=== PATIENT | female | born 1995 | race Caucasian/White ===

== ENCOUNTER 2024-06-20 04:09 | Inpatient (IN) | payer OTHER ==
[2024-06-20] MEDS: ACETAMINOPHEN TAB 325 MG TAB PO STA (05:07)
[2024-06-20] MEDS: IBUPROFEN 600 MG TAB PO STA (05:08)
[2024-06-20] MEDS: ONDANSETRON ODT 4 MG TAB PO STA (05:09)
[2024-06-20] MEDS: BACITRACIN OINT 1 EACH PACKET TOPICAL ONE (05:56)
--- NOTE | 2024-06-20 06:14 | ED ---
Lower Extremity Injury HPI <Davi Salgado - Last Filed: 06/20/24 09:22> - General Source: patient, police Mode of arrival: wheelchair Limitations: no limitations - History of Present Illness MD Complaint: foot injury -: hour(s) Injury: Foot: Right, Left Type of Injury: other (Walking) Place: street/outdoors Severity: moderate Improves With: nothing Worsens With: weight bearing Context: other <Ney Simons - Last Filed: 06/26/24 09:35> - General Chief Complaint: Extremity Injury, Lower Stated Complaint: Leg injuries Time Seen by Provider: 06/20/24 04:27 - History of Present Illness Initial Comments: This patient is a 29-year-old woman who complains of having bilateral foot pain. The patient states that she had been doing a lot of walking today. She knows that she caused at least 1 blister on her right foot. She denies any other injuries. (Ney Simons) - Related Data Home Medications Medication Instructions Recorded Confirmed Atomoxetine HCl [Strattera] 18 mg PO DAILY 06/20/24 06/22/24 Escitalopram [Lexapro] 5 mg PO DAILY 06/20/24 06/22/24 Etanercept [Enbrel Sureclick] 50 mg SQ Q7D 06/20/24 06/22/24 Gabapentin [Neurontin] 200 mg PO BID 06/20/24 06/22/24 Levothyroxine Sodium [Synthroid] 25 mcg PO DAILY 06/20/24 06/22/24 Propranolol [Inderal] 20 mg PO BID 06/20/24 06/22/24 Spironolactone [Aldactone] 100 mg PO DAILY 06/20/24 06/22/24 sulfaSALAzine [sulfaSALAzine Dr] 1,000 mg PO BID 06/23/24 06/23/24 Previous Rx's Medication Instructions Recorded Ibuprofen [Motrin] 600 mg PO Q8HR PRN #20 tab 06/20/24 Allergies Allergy/AdvReac Type Severity Reaction Status Date / Time caffeine Allergy Anaphylaxis Verified 06/20/24 11:02 Review of Systems ROS Other: All systems not noted in ROS Statement are negative. <Davi Salgado - Last Filed: 06/20/24 09:22> ROS Other: All systems not noted in ROS Statement are negative. Constitutional: Denies: fever, chills, weakness Respiratory: Denies: cough, dyspnea Cardiovascular: Denies: chest pain, palpitations, edema Gastrointestinal: Denies: abdominal pain, nausea, vomiting, diarrhea Genitourinary: Denies: dysuria, frequency, hematuria Musculoskeletal: Denies: back pain Skin: Reports: other (Blister right foot). Denies: rash Neurological: Denies: headache, weakness, numbness <Ney Simons - Last Filed: 06/26/24 09:35> ROS Statement: Those systems with pertinent positive or pertinent negative responses have been documented in the HPI. Past Medical History Past Medical History: No Reported History History of Any Multi-Drug Resistant Organisms: None Reported Past Surgical History: No Surgical Hx Reported Past Psychological History: Anxiety, Bipolar, Depression Smoking Status: Never smoker Past Alcohol Use History: None Reported Past Drug Use History: None Reported <Ney Simons - Last Filed: 06/26/24 09:35> General Exam Limitations: no limitations General appearance: alert, in no apparent distress Head exam: Present: atraumatic, normocephalic Eye exam: Present: normal appearance. Absent: scleral icterus, conjunctival injection ENT exam: Present: normal oropharynx Neck exam: Present: normal inspection Respiratory exam: Present: normal lung sounds bilaterally. Absent: respiratory distress, wheezes, rales, rhonchi, stridor, accessory muscle use Cardiovascular Exam: Present: regular rate, normal rhythm, normal heart sounds. Absent: systolic murmur, diastolic murmur, rubs, gallop Extremities exam: Present: full ROM, normal capillary refill, other (Does have blister to the plantar aspect of the right forefoot. No evidence of infection. No erythema, warmth, drainage). Absent: pedal edema Neurological exam: Present: alert. Absent: motor sensory deficit Skin exam: Present: warm, dry, normal color, vesicles (See above). Absent: rash <Ney Simons - Last Filed: 06/26/24 09:35> Course Vital Signs 06/20/24 06/20/24 06/20/24 04:10 05:40 06:31 Temperature 97.9 F Pulse Rate 114 H 92 137 H Respiratory 20 18 16 Rate Blood Pressure 120/81 106/73 119/62 O2 Sat by Pulse 98 95 Oximetry 06/20/24 06/20/24 06/20/24 08:30 09:09 10:21 Temperature 97.9 F Pulse Rate 104 H 104 H 96 Respiratory 18 18 16 Rate Blood Pressure 102/75 113/68 111/77 O2 Sat by Pulse 97 Oximetry 06/20/24 06/20/24 06/20/24 11:04 12:57 14:48 Temperature Pulse Rate 94 93 102 H Respiratory 18 18 18 Rate Blood Pressure 105/65 120/80 123/80 O2 Sat by Pulse 93 L 99 Oximetry 06/20/24 06/20/24 06/20/24 16:25 18:10 20:04 Temperature Pulse Rate 106 H 113 H 113 H Respiratory 16 18 18 Rate Blood Pressure 111/75 115/61 102/69 O2 Sat by Pulse 95 98 95 Oximetry 06/20/24 06/21/24 06/21/24 21:08 00:00 05:00 Temperature Pulse Rate 107 H 98 100 Respiratory 16 18 18 Rate Blood Pressure 103/60 113/63 109/62 O2 Sat by Pulse 97 99 Oximetry 06/21/24 06:17 Temperature Pulse Rate 102 H Respiratory 18 Rate Blood Pressure 105/68 O2 Sat by Pulse 96 Oximetry Medical Decision Making - Lab Data Result diagrams: 06/20/24 07:08 06/20/24 07:08 <Davi Salgado - Last Filed: 06/20/24 09:22> - Lab Data Result diagrams: 06/22/24 06:04 06/22/24 06:04 - EKG Data -: EKG Interpreted by Me EKG shows normal: sinus rhythm, axis (Normal), intervals (Normal), QRS complexes ( normal), ST-T waves (Versions inferior and lateral) Rate: normal (Rate 131 bpm) <Ney Simons - Last Filed: 06/26/24 09:35> - Medical Decision Making Was patient admitted / discharged? Hospital course, mention meds given and route, prescriptions, significant lab abnormalities, going to OR and other pertinent info. @ -Dr. Wilburn signed out the patient to me at 7 AM. Patient admitted that she took a bunch of Lamictal last night and that she is suicidal. Patient is not back to her baseline so patient will be admitted as a medical admission with a psych consult. I spoke with Dr. Christensen he agreed to admit the patient Undiagnosed new problem with uncertain prognosis? @ -No Drug Therapy requiring intensive monitoring for toxicity (Heparin, Nitro, Insulin, Cardizem)? @ -No Were any procedures done? @ -No Diagnosis/symptom? @ -Intentional overdose Acute, or Chronic, or Acute on Chronic? @ -Acute Uncomplicated (without systemic symptoms) or Complicated (systemic symptoms)? @ -Complicated Side effects of treatment? @ -No Exacerbation, Progression, or Severe Exacerbation? @ -No Poses a threat to life or bodily function? How? (Chest pain, USA, RI, pneumonia, PE, COPD, DKA, ARF, appy, cholecystitis, CVA, Diverticulitis, Homicidal, Suicidal, threat to staff... and all critical care pts) @ -Yes this could lead to significant lethargy and possible rhabdomyolysi (Davi Salgado) This patient is a 29-year-old woman who initially presented with complaint that she had been walking a lot and sustained a blister to the right foot and was having bilateral foot pain. She received medication here and then on reeval prior to discharge, the patient was very somnolent. She began to have vomiting with some coffee-ground material. The patient attempted to get up from the bed and fell striking her head against the wall. There was concern that she may have ingested additional doses of her Lamictal. She had 3 prescription bottle filled May 28 that was empty. Was pt. sent in by a medical professional or institution ([facility], CERTIFIED ADAPTED PHYSICAL EDUCATOR, urgent care, hospital, or [facility]...) When possible be specific @ -[No] Did you speak to anyone other than the patient for history (EMS, parent, family, police, friend...)? What history was obtained from this source @ -[No] Did you review nursing and triage notes (agree or disagree)? Why? @ -[I reviewed and agree with nursing and triage notes] Were old charts reviewed (outside hosp., previous admission, EMS record, old EKG, old radiological studies, urgent care reports/EKG's, [facility] records)? Report findings @ -[No old charts were reviewed] Differential Diagnosis (chest pain, altered mental status, abdominal pain women, abdominal pain men, vaginal bleeding, weakness, fever, dyspnea, syncope, headache, dizziness, GI bleed, back pain, seizure, CVA, palpatations, mental health, musculoskeletal)? @ -[Differential Mental Health Depression, anxiety, bipolar, psychosis, schizophrenia, borderline personality, situational depression, adjustment disorder, behavioral disorder, brain tumor, malingering, substance abuse, encephalopathy, medication reaction, dementia, hypothyroidism, degenerative neurologic disorder, lupus.... This is not meant to be all-inclusive list EKG interpreted by me (3pts min.). @ -[As above] X-rays interpreted by me (1pt min.). @ -[None done] CT interpreted by me (1pt min.). @ -[None done] U/S interpreted by me (1pt. min.). @ -[None done] What testing was considered but not performed or refused? (CT, X-rays, U/S, labs)? Why? @ -[None] What meds were considered but not given or refused? Why? @ -[None] Did you discuss the management of the patient with other professionals (professionals i.e. , PA, CERTIFIED ADAPTED PHYSICAL EDUCATOR, lab, RT, psych nurse, social work associate, metal fitters and machinists, teacher, weapons officer naval activity, case therapist)? Give summary @ -[No] Was smoking cessation discussed for >3mins.? @ -[No] Was critical care preformed (if so, how long)? @ -[No] Were there social determinants of health that impacted care today? How? (Homelessness, low income, unemployed, alcoholism, drug addiction, transportation, low edu. Level, literacy, decrease access to med. care, retirement, rehab)? @ -[No] Was there de-escalation of care discussed even if they declined (Discuss DNR or withdrawal of care, Hospice)? DNR status @ -[No] What co-morbidities impacted this encounter? (DM, HTN, Smoking, COPD, CAD, Cancer, CVA, ARF, Chemo, Hep., AIDS, mental health diagnosis, sleep apnea, morbid obesity)? @ -[None] Was patient admitted / discharged? Hospital course, mention meds given and route, prescriptions, significant lab abnormalities, going to OR and other perti nent info. @ -[hospital course] nction? How? (Chest pain, USA, RI, pneumonia, PE, COPD, DKA, ARF, appy, cholecystitis, CVA, Diverticulitis, Homicidal, Suicidal, threat to staff... and all critical care pts) @ -[No] (Ney Simons) - Lab Data Lab Results 06/20/24 06/20/24 06/20/24 Range/Units 07:08 07:08 07:08 WBC 14.6 H (3.8-10.6) k/uL RBC 4.13 (3.80-5.40) m/uL Hgb 12.9 (11.4-16.0) gm/dL Hct 37.9 (34.0-46.0) % MCV 91.6 (80.0-100.0) fL MCH 31.3 (25.0-35.0) pg MCHC 34.2 (31.0-37.0) g/dL RDW 12.3 (11.5-15.5) % Plt Count 268 (150-450) k/uL MPV 8.9 Neutrophils % 76 % Lymphocytes % 12 % Monocytes % 8 % Eosinophils % 1 % Basophils % 0 % Neutrophils # 11.1 H (1.3-7.7) k/uL Lymphocytes # 1.8 (1.0-4.8) k/uL Monocytes # 1.2 H (0-1.0) k/uL Eosinophils # 0.1 (0-0.7) k/uL Basophils # 0.1 (0-0.2) k/uL Sodium 138 (137-145) mmol/L Potassium 3.1 L (3.5-5.1) mmol/L Chloride 104 (98-107) mmol/L Carbon Dioxide 20 L (22-30) mmol/L Anion Gap 14 mmol/L BUN 9 (7-17) mg/dL Creatinine 0.58 (0.52-1.04) mg/dL Est GFR (CKD-EPI)AfAm >90 (>60 ml/min/1.73 sqM) Est GFR (CKD-EPI)NonAf >90 (>60 ml/min/1.73 sqM) Glucose 175 H (74-99) mg/dL Lactic Ac Sepsis Rflx Plasma Lactic Acid Vance 3.8 H* (0.7-2.0) mmol/L Calcium 9.0 (8.4-10.2) mg/dL Total Bilirubin 0.8 (0.2-1.3) mg/dL AST 41 H (14-36) U/L ALT 22 (4-34) U/L Alkaline Phosphatase 84 (38-126) U/L Creatine Kinase (30-135) U/L Troponin I (0.000-0.034) ng/mL Total Protein 6.9 (6.3-8.2) g/dL Albumin 4.2 (3.5-5.0) g/dL Urine HCG, Qual (Not Detectd) Salicylates <1.0 mg/dL Urine Opiates Screen (NotDetected) Ur Oxycodone Screen (NotDetected) Urine Methadone Screen (NotDetected) Acetaminophen <10.0 ug/mL Ur Barbiturates Screen (NotDetected) Lamotrigine (2.0-15.0) ug/mL U Tricyclic Antidepress (NotDetected) Ur Phencyclidine Scrn (NotDetected) Ur Amphetamines Screen (NotDetected) U Methamphetamines Scrn (NotDetected) U Benzodiazepines Scrn (NotDetected) Urine Cocaine Screen (NotDetected) U Marijuana (THC) Screen (NotDetected) Serum Alcohol <10 mg/dL 06/20/24 06/20/24 06/20/24 Range/Units 07:08 07:08 07:08 WBC (3.8-10.6) k/uL RBC (3.80-5.40) m/uL Hgb (11.4-16.0) gm/dL Hct (34.0-46.0) % MCV (80.0-100.0) fL MCH (25.0-35.0) pg MCHC (31.0-37.0) g/dL RDW (11.5-15.5) % Plt Count (150-450) k/uL MPV Neutrophils % % Lymphocytes % % Monocytes % % Eosinophils % % Basophils % % Neutrophils # (1.3-7.7) k/uL Lymphocytes # (1.0-4.8) k/uL Monocytes # (0-1.0) k/uL Eosinophils # (0-0.7) k/uL Basophils # (0-0.2) k/uL Sodium (137-145) mmol/L Potassium (3.5-5.1) mmol/L Chloride (98-107) mmol/L Carbon Dioxide (22-30) mmol/L Anion Gap mmol/L BUN (7-17) mg/dL Creatinine (0.52-1.04) mg/dL Est GFR (CKD-EPI)AfAm (>60 ml/min/1.73 sqM) Est GFR (CKD-EPI)NonAf (>60 ml/min/1.73 sqM) Glucose (74-99) mg/dL Lactic Ac Sepsis Rflx Plasma Lactic Acid Vance (0.7-2.0) mmol/L Calcium (8.4-10.2) mg/dL Total Bilirubin (0.2-1.3) mg/dL AST (14-36) U/L ALT (4-34) U/L Alkaline Phosphatase (38-126) U/L Creatine Kinase 463 H (30-135) U/L Troponin I <0.012 (0.000-0.034) ng/mL Total Protein (6.3-8.2) g/dL Albumin (3.5-5.0) g/dL Urine HCG, Qual (Not Detectd) Salicylates mg/dL Urine Opiates Screen (NotDetected) Ur Oxycodone Screen (NotDetected) Urine Methadone Screen (NotDetected) Acetaminophen ug/mL Ur Barbiturates Screen (NotDetected) Lamotrigine 30.5 H* (2.0-15.0) ug/mL U Tricyclic Antidepress (NotDetected) Ur Phencyclidine Scrn (NotDetected) Ur Amphetamines Screen (NotDetected) U Methamphetamines Scrn (NotDetected) U Benzodiazepines Scrn (NotDetected) Urine Cocaine Screen (NotDetected) U Marijuana (THC) Screen (NotDetected) Serum Alcohol mg/dL 06/20/24 06/20/24 06/20/24 Range/Units 07:36 08:34 08:34 WBC (3.8-10.6) k/uL RBC (3.80-5.40) m/uL Hgb (11.4-16.0) gm/dL Hct (34.0-46.0) % MCV (80.0-100.0) fL MCH (25.0-35.0) pg MCHC (31.0-37.0) g/dL RDW (11.5-15.5) % Plt Count (150-450) k/uL MPV Neutrophils % % Lymphocytes % % Monocytes % % Eosinophils % % Basophils % % Neutrophils # (1.3-7.7) k/uL Lymphocytes # (1.0-4.8) k/uL Monocytes # (0-1.0) k/uL Eosinophils # (0-0.7) k/uL Basophils # (0-0.2) k/uL Sodium (137-145) mmol/L Potassium (3.5-5.1) mmol/L Chloride (98-107) mmol/L Carbon Dioxide (22-30) mmol/L Anion Gap mmol/L BUN (7-17) mg/dL Creatinine (0.52-1.04) mg/dL Est GFR (CKD-EPI)AfAm (>60 ml/min/1.73 sqM) Est GFR (CKD-EPI)NonAf (>60 ml/min/1.73 sqM) Glucose (74-99) mg/dL Lactic Ac Sepsis Rflx Y Plasma Lactic Acid Vance (0.7-2.0) mmol/L Calcium (8.4-10.2) mg/dL Total Bilirubin (0.2-1.3) mg/dL AST (14-36) U/L ALT (4-34) U/L Alkaline Phosphatase (38-126) U/L Creatine Kinase (30-135) U/L Troponin I (0.000-0.034) ng/mL Total Protein (6.3-8.2) g/dL Albumin (3.5-5.0) g/dL Urine HCG, Qual Not Detected (Not Detectd) Salicylates mg/dL Urine Opiates Screen Not Detected (NotDetected) Ur Oxycodone Screen Not Detected (NotDetected) Urine Methadone Screen Not Detected (NotDetected) Acetaminophen ug/mL Ur Barbiturates Screen Not Detected (NotDetected) Lamotrigine (2.0-15.0) ug/mL U Tricyclic Antidepress Not Detected (NotDetected) Ur Phencyclidine Scrn Not Detected (NotDetected) Ur Amphetamines Screen Not Detected (NotDetected) U Methamphetamines Scrn Not Detected (NotDetected) U Benzodiazepines Scrn Detected H (NotDetected) Urine Cocaine Screen Not Detected (NotDetected) U Marijuana (THC) Screen Not Detected (NotDetected) Serum Alcohol mg/dL Disposition Time of Disposition: 09:23 <Davi Salgado - Last Filed: 06/20/24 09:22> Is patient prescribed a controlled substance at d/c from ED?: No <Ney Simons - Last Filed: 06/26/24 09:35> Clinical Impression: Foot pain, Intentional overdose Disposition: ADMITTED IP TO THIS HOSP Condition: Stable
[2024-06-20] MEDS: SODIUM CHLORIDE 0.9% 1,000 ML IV STA (07:13)
[2024-06-20 07:24] LABS: Basophils # (A) 0.1 k/uL (0-0.2); Basophils % (A) 0 %; Eosinophils # (A) 0.1 k/uL (0-0.7); Eosinophils % (A) 1 %; HCT 37.9 % (34.0-46.0); HGB 12.9 gm/dL (11.4-16.0); Lymphocytes # (A) 1.8 k/uL (1.0-4.8); Lymphocytes % (A) 12 %; MCH 31.3 pg (25.0-35.0); MCHC 34.2 g/dL (31.0-37.0); MCV 91.6 fL (80.0-100.0); Mean Platelet Volume 8.9; Monocytes # (A) 1.2 k/uL (0-1.0); Monocytes % (A) 8 %; Neutrophils # (A) 11.1 k/uL (1.3-7.7); Neutrophils % (A) 76 %; Platelet Count 268 k/uL (150-450); RBC 4.13 m/uL (3.80-5.40); RDW 12.3 % (11.5-15.5); WBC 14.6 k/uL (3.8-10.6)
[2024-06-20 07:35] LABS: ALT 22 U/L (4-34); AST 41 U/L (14-36); Acetaminophen <10.0 ug/mL; African American GFR (CKD) >90 (>60 ml/min/1.73 sqM); Albumin 4.2 g/dL (3.5-5.0); Alcohol <10 mg/dL; Alkaline Phosphatase 84 U/L (38-126); Anion Gap 14 mmol/L; Blood Urea Nitrogen 9 mg/dL (7-17); Carbon Dioxide 20 mmol/L (22-30); Chloride 104 mmol/L (98-107); Glucose 175 mg/dL (74-99); Non-African American GFR(CKD) >90 (>60 ml/min/1.73 sqM); Potassium 3.1 mmol/L (3.5-5.1); Salicylate <1.0 mg/dL; Sodium 138 mmol/L (137-145); Total Bilirubin 0.8 mg/dL (0.2-1.3); Total Protein 6.9 g/dL (6.3-8.2)
--- NOTE | 2024-06-20 08:22 | CT ---
EXAMINATION TYPE: CT brain wo con CT DLP: 1095.4 mGycm, Automated exposure control for dose reduction was used. DATE OF EXAM: 06/20/2024 8:18 AM COMPARISON: None. CLINICAL INDICATION: Female, 29 years old with history of fall injury, Fall, leg injuries, AMS, poor historian TECHNIQUE: Brain: Axial CT images of the brain were obtained with coronal and sagittal reformats created and rev iewed. Contrast used: None. Oral contrast used: None. FINDINGS: Brain: Extra-axial spaces: No abnormal extra-axial fluid collections. Ventricular system: Within normal limits Cerebral parenchyma: No acute intraparenchymal hemorrhage or mass effect. The escobar-white junction is well differentiated. Cerebellum: Unremarkable. Mass effect: No evidence of midline shift. Intracranial vasculature: unremarkable Soft tissues: Normal. Calvarium/osseous structures: No depressed skull fracture. Paranasal sinuses and mastoid air cells: Mild scattered paranasal sinus disease. Visualized orbits: Orbital contents are intact. IMPRESSION: No acute intracranial process. [facility], , 06/20/2024 8:20 AM
[2024-06-20 09:01] LABS: Amphetamine Screen,Urine Not Detected (NotDetected); Barbiturate Screen,Urine Not Detected (NotDetected); Benzodiazepines Screen,Urine Detected (NotDetected); Cocaine Screen,Urine Not Detected (NotDetected); Methadone Screen, Urine Not Detected (NotDetected); Opiate Screen,Urine Not Detected (NotDetected); Oxycodone Screen, Urine Not Detected (NotDetected); Phencyclidine Screen,Urine Not Detected (NotDetected); Tricyclic Antidepressant,Urine Not Detected (NotDetected); Urn Cannabinoid Scrn Not Detected (NotDetected)
[2024-06-20] MEDS ORDERED: POTASSIUM CHLORIDE 40 MEQ in WATER FOR INJECTION 1 100ML.BAG IVPB STA (10:25)
[2024-06-20] MEDS: SODIUM CHLORIDE 0.9% 1,000 ML IV ONE (11:03)
[2024-06-20] MEDS: POTASSIUM CHLORIDE 20 MEQ in WATER FOR INJECTION 1 100ML.BAG IVPB SCH (11:03)
[2024-06-20] MEDS: SODIUM CHLORIDE 0.9% 500 ML 500 ML IV ONE (11:03)
--- NOTE | 2024-06-20 13:34 | P.HPIM ---
History of Present Illness H&P Date: 06/20/24 Patient is a 29-year-old female with past medical history of anxiety, bipolar, depression. History taken from patient's chart as patient is currently somnolent and not able to provide history. Patient had initially come in with bilateral foot pain. Patient reported that she had been doing a lot of walking and it caused a blister on her right foot. Patient was going to be discharged from the ED however she appeared somnolent and she had an episode of vomiting and patient also attempted to get out of bed and fell striking her head against the wall. There was concern that the patient may have ingested additional doses of her Lamictal. She had 3 prescription bottles filled May 28 that were empty at bedside. Per ED physician note patient admitted that she took a bunch of Lamictal last night and that she was suicidal. Patient currently remains somnolent and lethargic. In the ED patient WBC was 14.6. Potassium 3.1. Lactic acid 3.8. Repeat lactic acid 1.5. UDS positive for benzodiazepine. Patient is not on any benzodiazepine at home. In the ED patient was given 2 L fluid bolus and also 40 mill equivalents of potassium chloride. ROS: Unable to obtain due to altered mental status Physical exam General: [Somnolent and lethargic]. Eye: [No scleral icterus normal conjunctiva].]. Neck: [Supple, non-tender, no carotid bruits, no JVD, no lymphadenopathy]. Lungs: [Clear to auscultation and percussion, non-labored respiration]. Heart: [Normal rate, regular rhythm, no murmur, gallop or edema]. Abdomen: [Soft, non-tender, non-distended, normal bowel sounds, no masses]. Neurologic: [Patient currently somnolent but easily arousable however not following any commands]. Psychiatric: [Somnolent lethargic]. Assessment and plan Acute encephalopathy secondary to Lamictal overdose and possible other drugs Lamictal overdose Suicidal idealization Will continue to monitor patient mental status Continue with IV fluids Patient's UDS was also positive for benzodiazepine. Patient was not given any benzodiazepine in the hospital and patient is not on any benzodiazepine at home. Psych consult Due to patient's altered mental status will hold all her medications for now IV Haldol 0.5 mg every 4 hours as needed for agitation Discussed with poison control who is recommending supportive care Nausea vomiting likely due to Lamictal overdose See management above Elevated lactic acid Lactic acid has normalized Fall in the emergency room CT head negative for acute process Hypokalemia Replete as needed Leukocytosis likely reactive Monitor for signs or symptoms of infection Right foot blister Continue with bacitracin cream Hyperglycemia likely reactive Continue monitoring Psych disorder Will hold off on his psych meds for now DVT prophylaxis: Low VTE score. Past Medical History Past Medical History: No Reported History History of Any Multi-Drug Resistant Organisms: None Reported Past Surgical History: No Surgical Hx Reported Past Psychological History: Anxiety, Bipolar, Depression Smoking Status: Never smoker Past Alcohol Use History: None Reported Past Drug Use History: None Reported Medications and Allergies Home Medications Medication Instructions Recorded Confirmed Type Atomoxetine HCl [Strattera] 18 mg PO DAILY 06/20/24 06/20/24 History Escitalopram [Lexapro] 5 mg PO DAILY 06/20/24 06/20/24 History Etanercept [Enbrel Sureclick] 50 mg SQ Q7D 06/20/24 06/20/24 History Gabapentin [Neurontin] 200 mg PO BID 06/20/24 06/20/24 History Ibuprofen [Motrin] 600 mg PO Q8HR PRN #20 tab 06/20/24 Rx Levothyroxine Sodium [Synthroid] 25 mcg PO DAILY 06/20/24 06/20/24 History Propranolol [Inderal] 20 mg PO BID 06/20/24 06/20/24 History Spironolactone [Aldactone] 100 mg PO DAILY 06/20/24 06/20/24 History Tretinoin [Tretinoin 0.05%] 1 applic TOPICAL HS 06/20/24 06/20/24 History Triamcinolone 0.1% Cream [Kenalog 1 applicatio TOPICAL BID PRN 06/20/24 06/20/24 History 0.1% Cream] busPIRone HCl [Buspar] 5 mg PO BID 06/20/24 06/20/24 History lamoTRIgine [LaMICtal Xr] 200 mg PO BID 06/20/24 06/20/24 History sulfaSALAzine [sulfaSALAzine Dr] 1,000 mg PO BID 06/20/24 06/20/24 History Allergies Allergy/AdvReac Type Severity Reaction Status Date / Time caffeine Allergy Anaphylaxis Verified 06/20/24 11:02 Physical Exam Osteopathic Statement: *. No significant issues noted on an osteopathic structural exam other than those noted in the History and Physical/Consult. Vitals: Vital Signs Temp Pulse Resp BP Pulse Ox 06/20/24 12:57 93 18 120/80 06/20/24 11:04 94 18 105/65 93 L 06/20/24 10:21 97.9 F 96 16 111/77 97 06/20/24 09:09 104 H 18 113/68 06/20/24 08:30 104 H 18 102/75 06/20/24 06:31 137 H 16 119/62 95 06/20/24 05:40 92 18 106/73 06/20/24 04:10 97.9 F 114 H 20 120/81 98 Intake and Output 06/19/24 06/20/24 06/20/24 22:59 06:59 14:59 Output Total 500 Balance -500 Output: Urine 500 Straight 500 Other: Weight 200 kg Results CBC & Chem 7: 06/20/24 07:08 06/20/24 07:08 Labs: Abnormal Lab Results - Last 24 Hours (Table) 06/20/24 06/20/24 06/20/24 Range/Units 07:08 07:08 07:08 WBC 14.6 H (3.8-10.6) k/uL Neutrophils # 11.1 H (1.3-7.7) k/uL Monocytes # 1.2 H (0-1.0) k/uL Potassium 3.1 L (3.5-5.1) mmol/L Carbon Dioxide 20 L (22-30) mmol/L Glucose 175 H (74-99) mg/dL Plasma Lactic Acid Vance 3.8 H* (0.7-2.0) mmol/L AST 41 H (14-36) U/L Creatine Kinase (30-135) U/L U Benzodiazepines Scrn (NotDetected) 06/20/24 06/20/24 Range/Units 07:08 08:34 WBC (3.8-10.6) k/uL Neutrophils # (1.3-7.7) k/uL Monocytes # (0-1.0) k/uL Potassium (3.5-5.1) mmol/L Carbon Dioxide (22-30) mmol/L Glucose (74-99) mg/dL Plasma Lactic Acid Vance (0.7-2.0) mmol/L AST (14-36) U/L Creatine Kinase 463 H (30-135) U/L U Benzodiazepines Scrn Detected H (NotDetected)
[2024-06-20] MEDS ORDERED: HALOPERIDOL LACTATE 5 MG/ML 1 ML VIAL IVP PRN (13:35)
[2024-06-20] MEDS ORDERED: OLANZapine 10 MG VIAL IM PRN (14:16)
--- NOTE | 2024-06-20 14:16 | P.CN ---
Psychiatric Consult - . Consult date: 06/20/24 Consult:: 06/20/24 13:22 IDENTIFYING DATA: This patient is a 29-year-old female REASON FOR REFERRAL: Psychiatry was consulted for intentional overdose HISTORY OF PRESENT ILLNESS: The patient presented to the hospital initially on 06/20 for complaints of a bilateral lower extremity injury. The patient apparently was stating that she was walking quite a bit and injured herself. Patient was about to be discharged apparently however she started having dizziness vomiting and syncope. Patient had admitted to medical staff that she had overdosed on her medication including Lamictal the night prior. Patient's WBC count was elevated neutrophil count elevated. Benzodiazepines positive on urine drug screen. Salicylates and acetaminophen levels were negative. Patient was seen today by bond underwriter at the bedside, she was fairly sedated, when awoken she was mildly agitated, looking around the room, she only answered some questions, was fairly confused. She did admit to overdosing on her Lamictal the night before, when asked why she stated "suicide". She appeared to be fairly ill and began vomiting at the bedside. She was unable to answer any further questions. Patient was noticed to have several large scratches on her forearm. PAST PSYCHIATRIC HISTORY: Patient has a a history of unknown mental illness. Patient is apparently on Lamictal, Lexapro, Neurontin, Inderal, Strattera and BuSpar at home. Patient was unable to give further psychiatric history due to her mental status. PAST MEDICAL HISTORY: Past Medical History: No Reported History History of Any Multi-Drug Resistant Organisms: None Reported Past Surgical History: No Surgical Hx Reported Past Psychological History: Anxiety, Bipolar, Depression Smoking Status: Never smoker Past Alcohol Use History: None Reported Past Drug Use History: None Reported ALLERGIES: as per EMR. CHEMICAL DEPENDENCY HISTORY: Unable to gather FAMILY PSYCHIATRIC/SUBSTANCE USE HISTORY: Unable to gather] SOCIAL HISTORY: Unable to gather MENTAL STATUS EXAM: General Appearance: Patient appears to be overweight, appears ill, stated age is fairly somnolent, confused. Patient appears to have poor hygiene and grooming wearing hospital gown. Poor eye contact Behavior: Mildly agitated, confused, ill Speech: Patient's speech is concrete Mood/Affect: Unable to gather Suicidality/Homicidality: Patient did admit to suicidal action of overdosing, unable to answer question regarding current suicidal or homicidal thoughts. Perceptions: Able to gather Though content/process: [place], poverty of content Memory and concentration: AOX1-2, grossly impaired concentration. Cannot spell "WORLD" backwards Judgment and insight: Poor/impulsive IMPRESSIONS: Suicide attempt by overdose on psychiatric medication Mood disorder unspecified PLAN: -At this time patient DOES meet criteria for inpatient psychiatric admission ONCE patient is thoroughly medically cleared given patients severe overdose on medication. -Would recommend the following medication changes/additions: Please hold off on psychiatric medications until patient is medically cleared. Will add Zyprexa as needed for agitation/psychosis. -Continue 1:1 sitter for safety -Cannot leave AMA at this time. Patient will need a petition and certification if attempting to leave AMA. -Please ensure to contact poison control for further direction and recommendations to treat overdose on lamictal. -When medically stable, patient is eligible for transfer to a psych bed when available. -Communicated plan to patient's nurse -Psychiatry will sign off at this time -Please contact with any questions. 06/20/24 14:03 06/20/24 14:07
[2024-06-20] MEDS: ONDANSETRON 4 MG/2 ML VIAL IVP PRN (20:00)
[2024-06-21 08:50] LABS: HGB 11.5 g/dL (12.0-15.0); MCH 31.2 pg (27.0-32.0); MCHC 33.8 g/dL (32.0-37.0); MCV 92.1 FL (80.0-97.0); Mean Platelet Volume 11.2 FL (9.5-12.2); NRBC Per 100 WBC 0 X 10*3/uL (0.00-0.01); Platelet Count 225 X 10*3/uL (140-440); RBC 3.69 X 10*6/uL (4.10-5.20); RDW 12.4 % (11.5-14.5); WBC 10.95 X 10*3/uL (4.50-10.00)
[2024-06-21 08:54] LABS: ALT 18 U/L (8-44); AST 36 U/L (13-35); Albumin 3.9 g/dL (3.8-4.9); Alkaline Phosphatase 75 U/L (41-126); BUN/Creat Ratio <5.83 Ratio (12.00-20.00); Blood Urea Nitrogen <3.5 mg/dL (9.0-27.0); Calcium 7.8 mg/dL (8.7-10.3); Carbon Dioxide 22.3 mmol/L (21.6-31.8); Chloride 105 mmol/L (96-109); Globulin 2.3 g/dL (1.6-3.3); Glucose 93 mg/dL (70-110); Potassium 3.4 mmol/L (3.5-5.5); Sodium 139 mmol/L (135-145); Total Bilirubin 0.4 mg/dL (0.3-1.2); Total Protein 6.2 g/dL (6.2-8.2)
--- NOTE | 2024-06-21 09:38 | CDI ---
Documentation Clarification Form Date: 06/21/2024 From: Kaylene Vargas RN CCDS Phone: [phone] Admit Date: 06/20/2024 09:24:00 AM Patient Name: Stacey Calzada Visit Number: [id number] Discharge Date: ATTENTION: The Clinical Documentation Specialists (CDI) and [facility] Coding Staff appreciate your assistance in clarifying documentation. Please respond to the clarification below the line at the bottom and electronically sign. The CDI & [facility] Coding staff will review the response and follow-up if needed. Please note: Queries are made part of the Legal Health Record. If you have any questions, please contact the author of this message via ITS. Doctor/Provider: Scot Soriano MD: Patient has a documented BMI of 80.6 on 06/20. Additional clarification is requested. History/Risk Factors: 29-year-old female with a history of unknown mental illness, who presented with right foot blister and found to have suicidal ideation and overdose of Lamictal Clinical Indicators: 06/20 Patients weight is 200kg Patients height is 5ft 2in Calculated BMI is 80.6 06/20 Psych consult, Mental Status Exam, General Appearance: "Patient appears to be overweight." Treatments: No diet noted to be ordered Please clarify if patients BMI indicates an additional diagnosis: [ X ] Morbid (Extreme) (severe) obesity [ ] No additional diagnosis/not clinically significant [ ] Other, please specify ____ [ ] Unable to determine Reference: NIH Classification for BMI Overweight BMI 2529.9 Obesity (Class 1) BMI 3034.9 Obesity (Class 2) BMI 3539.9 Morbid obesity (Class 3/Extreme/severe) BMI =40 MTDD
--- NOTE | 2024-06-21 09:50 | CDI ---
Documentation Clarification Form Date: 06/21/2024 From: Kaylene Vargas RN CCDS Phone: [phone] Admit Date: 06/20/2024 09:24:00 AM Patient Name: Stacey Calzada Visit Number: [id number] Discharge Date: ATTENTION: The Clinical Documentation Specialists (CDI) and [facility] Coding Staff appreciate your assistance in clarifying documentation. Please respond to the clarification below the line at the bottom and electronically sign. The CDI & [facility] Coding staff will review the response and follow-up if needed. Please note: Queries are made part of the Legal Health Record. If you have any questions, please contact the author of this message via ITS. Doctor/Provider: Scot Soriano MD: Encephalopathy is documented in the H&P 06/20. Additional clarification regarding the type of encephalopathy is requested. History/Risk Factors: 29-year-old female with a history of unknown mental illness, who presented with right foot blister and found to have suicidal ideation and overdose of Lamictal Clinical Indicators: 06/20 H&P, Assessment and Plan: "Acute encephalopathy secondary to Lamictal overdose and possible other drugs." 06/20 Psych consult, HPI: "Patient was seen today by physician underwriter at the bedside, she was fairly sedated, when awoken she was mildly agitated, looking around the room, she only answered some questions, was fairly confused. She did admit to overdosing on her Lamictal the night before, when asked why she stated "suicide"." 06/20 Lactic Acid: 3.8, 1.5 06/20 Urine Drug Screen: Benzodiazepine: Detected Treatment: Psych consult Normal Saline 1000cc IV bolus x2 on 06/20 then 75cc/hour Please clarify the type of encephalopathy, if known: [X ] Metabolic Encephalopathy [ ] Other, please specify [ ] Unable to determine MTDD
[2024-06-21 10:26] LABS: Basophils # (A) 0.02 X 10*3/uL (0.00-0.10); Basophils % (A) 0.2 %; Eosinophils # (A) 0 X 10*3/uL (0.04-0.35); Eosinophils % (A) 0 %; Lymphocytes % (A) 23.7 %; Monocytes # (A) 1.53 X 10*3/uL (0.20-1.00); Neutrophils # (A) 6.76 X 10*3/uL (1.80-7.70); Neutrophils % (A) 61.7 %; RBC Morphology Normal (Normal)
--- NOTE | 2024-06-21 10:56 | P.PN ---
Subjective Progress Note Date: 06/21/24 Patient is a 29-year-old female with past medical history of anxiety, bipolar, depression. History taken from patient's chart as patient is currently somnolent and not able to provide history. Patient had initially come in with bilateral foot pain. Patient reported that she had been doing a lot of walking and it caused a blister on her right foot. Patient was going to be discharged from the ED however she appeared somnolent and she had an episode of vomiting and patient also attempted to get out of bed and fell striking her head against the wall. There was concern that the patient may have ingested additional doses of her Lamictal. She had 3 prescription bottles filled May 28 that were empty at bedside. Per ED physician note patient admitted that she took a bunch of Lamictal last night and that she was suicidal. Patient currently remains somnolent and lethargic. In the ED patient WBC was 14.6. Potassium 3.1. Lactic acid 3.8. Repeat lactic acid 1.5. UDS positive for benzodiazepine. Patient is not on any benzodiazepine at home. Poison control was contacted and recommending supportive care. Patient seen by psychiatry is recommending [facility] once medically stable. Patient seen this morning. She is still somnolent. She still has not gotten out of bed. Per nurse patient still having episodes of vomiting. Patient is easily arousable. She was able to tell me her name and where she is and also the year. Patient also states that she did not eat for 2 days and has no tapan etite. When I touch the blisters on her feet she did not yell out in pain. Physical exam General examination - Alert and Oriented 3 in NAD Heart - + S1S2 no murmurs Lungs - Clear to auscultation Abdomen soft NT ND +ve BS Extremities - No edema, multiple skin blisters on bilateral feet POWERHOUSE TENDER - Moving all 4 extremities spontaneously Psych -somnolent Assessment and plan Acute encephalopathy secondary to Lamictal overdose and possible other drugs Lamictal overdose Suicidal idealization Will continue to monitor patient mental status -> patient still somnolent Continue with IV fluids Discussed with poison control is recommending supportive care Patient seen by psychiatry is recommending [facility] once medically stable. Per psychiatry patient cannot leave AMA. Patient started on Zyprexa 5 mg IM every 8 hours as needed for acute psychosis Nausea vomiting likely due to Lamictal overdose See management above Elevated lactic acid Lactic acid has normalized Fall in the emergency room CT head negative for acute process Hypokalemia Potassium this morning is 3.4 so we will give 20 mill equivalents Leukocytosis likely reactive Monitor for signs or symptoms of infection Improving Right foot blister No signs of infection Hyperglycemia likely reactive Continue monitoring Blood glucose on BMP this morning is 93 Psych disorder Will hold off on his psych meds for now DVT prophylaxis: Low VTE score. Objective - Vital Signs Vital signs: Vital Signs Temp 97.9 F 06/20/24 10:21 Pulse 105 H 06/21/24 08:30 Resp 16 06/21/24 08:30 BP 119/80 06/21/24 08:30 Pulse Ox 96 06/21/24 08:30 FiO2 Intake & Output 06/20/24 06/21/24 06/21/24 18:59 06:59 18:59 Output Total 500 Balance -500 Output: Urine 500 Straight 500 - Labs CBC & Chem 7: 06/21/24 05:32 06/21/24 05:30 Labs: Abnormal Lab Results - Last 24 Hours (Table) 06/20/24 06/21/24 06/21/24 Range/Units 07:08 05:30 05:32 WBC 10.95 H (4.50-10.00) X 10*3/uL RBC 3.69 L (4.10-5.20) X 10*6/uL Hgb 11.5 L (12.0-15.0) g/dL Hct 34.0 L (37.2-46.3) % Monocytes # 1.53 H (0.20-1.00) X 10*3/uL Eosinophils # 0 L (0.04-0.35) X 10*3/uL Potassium 3.4 L (3.5-5.5) mmol/L BUN <3.5 L (9.0-27.0) mg/dL BUN/Creatinine Ratio <5.83 L (12.00-20.00) Ratio Calcium 7.8 L (8.7-10.3) mg/dL AST 36 H (13-35) U/L Lamotrigine 30.5 H* (2.0-15.0) ug/mL
[2024-06-21] MEDS: POTASSIUM CHLORIDE 20 MEQ in WATER FOR INJECTION 1 100ML.BAG IVPB STA (12:40)
[2024-06-21] MEDS: SODIUM CHLORIDE 0.9% 1,000 ML IV SCH (13:03)
[2024-06-21] MEDS: POTASSIUM CHLORIDE ER 20 MEQ TAB.ER PO STA (13:03)
[2024-06-22 02:53] VITALS: RESP 17
[2024-06-22] MEDS: OLANZapine 5 MG TAB PO PRN (04:11)
[2024-06-22 08:58] LABS: Basophils # (A) 0.03 X 10*3/uL (0.00-0.10); Basophils % (A) 0.4 %; Eosinophils # (A) 0 X 10*3/uL (0.04-0.35); Eosinophils % (A) 0 %; HGB 10.5 g/dL (12.0-15.0); Lymphocytes # (A) 2.15 X 10*3/uL (0.90-5.00); Lymphocytes % (A) 25.2 %; MCH 30.4 pg (27.0-32.0); MCHC 32.8 g/dL (32.0-37.0); MCV 92.8 FL (80.0-97.0); Mean Platelet Volume 10.9 FL (9.5-12.2); Monocytes # (A) 1.09 X 10*3/uL (0.20-1.00); Monocytes % (A) 12.8 %; NRBC Per 100 WBC 0 X 10*3/uL (0.00-0.01); Neutrophils # (A) 5.23 X 10*3/uL (1.80-7.70); Neutrophils % (A) 61.1 %; Platelet Count 234 X 10*3/uL (140-440); RBC 3.45 X 10*6/uL (4.10-5.20); RDW 12.8 % (11.5-14.5); WBC 8.54 X 10*3/uL (4.50-10.00)
[2024-06-22 09:47] LABS: BUN/Creat Ratio <5.83 Ratio (12.00-20.00); Blood Urea Nitrogen <3.5 mg/dL (9.0-27.0); Calcium 8.2 mg/dL (8.7-10.3); Chloride 106 mmol/L (96-109); Glucose 78 mg/dL (70-110); Potassium 3.3 mmol/L (3.5-5.5); Sodium 139 mmol/L (135-145)
--- NOTE | 2024-06-22 12:16 | P.DS ---
Providers Date of admission: 06/20/24 09:24 Attending physician: Mk Christensen Consults: 06/20/24 09:23 Consult Physician Urgent Consulting Provider: Vinicius Orona Reason/Comments: Suicidal ideations Do you want consulting provider notified?: Already Contacted Primary care physician: Stated None Hospital Course: Discharge Diagnosis: Acute encephalopathy secondary to Lamictal overdose and possible other drugs Lamictal overdose Suicidal idealization Nausea vomiting likely due to Lamictal overdose: resolved Elevated lactic acid: resolved Fall in the emergency room Hypokalemia Leukocytosis likely reactive Bilateral feet blisters Hyperglycemia likely reactive History of bipolar disorder Hospital Course: Patient is a 29-year-old female with past medical history of anxiety, bipolar, depression. Patient had initially come in with bilateral foot pain. Patient reported that she had been doing a lot of walking and it caused blister on her feet. Patient was going to be discharged from the ED however she appeared somnolent and she had an episode of vomiting and patient also attempted to get out of bed and fell striking her head against the wall. There was concern that the patient may have ingested additional doses of her Lamictal. She had 3 prescription bottles filled May 28 that were empty at bedside. Per ED physician note patient admitted that she took a bunch of Lamictal last night and that she was suicidal. In the ED patient WBC was 14.6. Potassium 3.1. Lactic acid 3.8. Repeat lactic acid 1.5. UDS positive for benzodiazepine. Patient is not on any benzodiazepine at home. Poison control was contacted and recommending supportive care. So patient was referred for admission to the medicine service. Patient seen by psychiatry is recommending [facility] once medically stable. At the time of discharge patient's mental status had improved. Overall she was feeling much better. Patient will be discharged to [facility]. 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 Patient Condition at Discharge: Stable Plan - Discharge Summary New Discharge Prescriptions: New Ibuprofen [Motrin] 600 mg PO Q8HR PRN #20 tab PRN Reason: Pain Continue Levothyroxine Sodium [Synthroid] 25 mcg PO DAILY Spironolactone [Aldactone] 100 mg PO DAILY Etanercept [Enbrel Sureclick] 50 mg SQ Q7D Atomoxetine HCl [Strattera] 18 mg PO DAILY Propranolol [Inderal] 20 mg PO BID Gabapentin [Neurontin] 200 mg PO BID Escitalopram [Lexapro] 5 mg PO DAILY Discontinued Triamcinolone 0.1% Cream [Kenalog 0.1% Cream] 1 applicatio TOPICAL BID PRN PRN Reason: Skin Irritation Tretinoin [Tretinoin 0.05%] 1 applic TOPICAL HS busPIRone HCl [Buspar] 5 mg PO BID sulfaSALAzine [sulfaSALAzine Dr] 1,000 mg PO BID lamoTRIgine [LaMICtal Xr] 200 mg PO BID Discharge Medication List Atomoxetine HCl [Strattera] 18 mg PO DAILY 06/20/24 [History] Escitalopram [Lexapro] 5 mg PO DAILY 06/20/24 [History] Etanercept [Enbrel Sureclick] 50 mg SQ Q7D 06/20/24 [History] Gabapentin [Neurontin] 200 mg PO BID 06/20/24 [History] Ibuprofen [Motrin] 600 mg PO Q8HR PRN #20 tab 06/20/24 [Rx] Levothyroxine Sodium [Synthroid] 25 mcg PO DAILY 06/20/24 [History] Propranolol [Inderal] 20 mg PO BID 06/20/24 [History] Spironolactone [Aldactone] 100 mg PO DAILY 06/20/24 [History] Follow up Appointment(s)/Referral(s): None,Stated [Primary Care Provider] - 1-2 days Patient Instructions/Handouts: Foot Contusion (ED), Blister (ED) Discharge Disposition: TRANSFER TO PSYCH HOSP/UNIT
[2024-06-22] MEDS: POTASSIUM CHLORIDE ER 20 MEQ TAB.ER PO STA (13:31)
[2024-06-22 14:30] VITALS: BP 101/67; PULSE 101; TEMP 98.4
--- NOTE | 2024-06-22 14:54 | P.PN ---
Progress Note - Text Progress Note Date: 06/22/24 Interval history: Patient was seen today for psychiatric follow-up regarding patient's suicide a ttempt and overdose. Patient was seen more alert today awake, she had several large cuts running down her forearms. She was agreeable to speak to senior writer at the bedside. She had a one-to-one sitter at her side. She was minimizing the overdose, claims that she miscalculated the dose. She did claim that she is recently moving here to [place] and is not connected in the outpatient setting. Also claims that she was recently discharged from [facility] inpatient unit on the . She claims that she has a history of bipolar disorder and is on several different medications. She claims that her mood is "fine" and was minimizing the events that led to come to the hospital. She is denying any current suicidal thoughts denying any current homicidal ideations. Denying any auditory or visual hallucinations. MENTAL STATUS EXAM: General Appearance: Patient appears to be overweight, more calmer today, laying in the bed, she was fairly evasive and guarded. Patient appears to have improv ing hygiene and grooming wearing hospital gown. Improving eye contact Behavior: More cooperative today, somewhat evasive and guarded Speech: Patient's speech is fluent, normal tone Mood/Affect: Claims that her mood is "fine", affect is improving Suicidality/Homicidality: She is denying a suicide attempt denying any suicidal or homicidal ideations at this time. Perceptions: Denies any auditory or visual hallucinations. Though content/process: Guarded/evasive, minimizing the suicide attempt. Memory and concentration: AOX3, improved concentration. Judgment and insight: Poor/impulsive improving mildly IMPRESSIONS: Suicide attempt by overdose on psychiatric medication Bipolar disorder PLAN: -At this time patient DOES meet criteria for inpatient psychiatric admission ONCE patient is thoroughly medically cleared given patients severe overdose on medication. -Would recommend the following medication changes/additions: Please hold off on psychiatric medications until patient is medically cleared. Zyprexa as needed for agitation/psychosis. -Continue 1:1 sitter for safety until patient is safely transferred to the mental health unit. -Cannot leave AMA at this time. Patient will need a petition and certification if attempting to leave AMA. -When medically stable, patient is eligible for transfer to a psych bed when available. -Communicated plan to patient's nurse -Psychiatry will sign off at this time -Please contact with any questions.
== END 2024-06-22 19:11 | DRG 817 ==
LOC: EC 04:09 → 4SSUR 09:24
PROVIDERS: ADMIT Student in an Organized Health Care Education/Training Program; ATTEND Student in an Organized Health Care Education/Training Program
DX: T42.6X2A Poisoning by other antiepileptic and sedative-hypnotic drugs, intentional self-harm, initial encounter (principal); G93.41 Metabolic encephalopathy; E87.20 Acidosis, unspecified; Z68.45 Body mass index [BMI] 70 or greater, adult; E66.01 Morbid (severe) obesity due to excess calories; F31.9 Bipolar disorder, unspecified; S90.821A Blister (nonthermal), right foot, initial encounter; E87.6 Hypokalemia; D72.828 Other elevated white blood cell count; S90.822A Blister (nonthermal), left foot, initial encounter; R73.9 Hyperglycemia, unspecified; W06.XXXA Fall from bed, initial encounter; Y92.238 Other place in hospital as the place of occurrence of the external cause; Z79.890 Hormone replacement therapy; Z79.899 Other long term (current) drug therapy
CPT/HCPCS: 36415; 70450; 80048; 80053; 80143; 80175; 80179; 80306; 80320; 81025; 82550; 83605; 84484; 85025; 87635; 93005; 96361; 96365; 96366; 96375; 99285

== ENCOUNTER 2024-06-22 17:25 | Inpatient (IN) | payer MEDICAID ==
[2024-06-22] MEDS ORDERED: OLANZapine 10 MG VIAL IM PRN (17:39)
[2024-06-22] MEDS ORDERED: MAG HYDROX/AL HYDROX/SIMETH 355 ML BOTTLE PO PRN (17:39)
[2024-06-22] MEDS ORDERED: OLANZapine 5 MG TAB PO PRN (17:39)
[2024-06-22] MEDS ORDERED: MAGNESIUM HYDROXIDE 2,400 MG/30 ML CUP PO PRN (17:39)
[2024-06-22] MEDS: PROPRANOLOL 20 MG TAB PO SCH (20:59)
[2024-06-22] MEDS: GABAPENTIN 100 MG CAP PO SCH (20:59)
[2024-06-23] MEDS: LEVOTHYROXINE 25 MCG TAB PO SCH (06:35)
[2024-06-23 07:43] LABS: African American GFR (CKD) >90 (>60 ml/min/1.73 sqM); Anion Gap 9 mmol/L; Blood Urea Nitrogen <2 mg/dL (7-17); Calcium 9.2 mg/dL (8.4-10.2); Carbon Dioxide 23 mmol/L (22-30); Chloride 106 mmol/L (98-107); Glucose 94 mg/dL (74-99); Non-African American GFR(CKD) >90 (>60 ml/min/1.73 sqM); Potassium 3.8 mmol/L (3.5-5.1); Sodium 138 mmol/L (137-145)
[2024-06-23] MEDS: ATOMOXETINE HCL 18 MG PO SCH (09:08)
[2024-06-23] MEDS: SPIRONOLACTONE 25 MG TAB PO SCH (09:09)
[2024-06-23] MEDS: ESCITALOPRAM 5 MG TAB PO SCH (09:09)
--- NOTE | 2024-06-23 11:14 | P.HP ---
Psychiatric H&P - . H&P Date: 06/23/24 History & Physical: Allergies Allergy/AdvReac Type Severity Reaction Status Date / Time caffeine Allergy Anaphylaxis Verified 06/20/24 11:02 Vital Signs Temp 98.3 F 06/23/24 06:25 Pulse 102 H 06/23/24 09:13 Resp 15 06/23/24 06:25 BP 109/75 06/23/24 09:13 Pulse Ox 97 06/23/24 06:25 FiO2 Intake & Output 06/22/24 06/23/24 06/23/24 18:59 06:59 18:59 Weight 90.718 kg Laboratory Last Values Sodium 138 mmol/L (137-145) 06/23/24 07:10 Potassium 3.8 mmol/L (3.5-5.1) 06/23/24 07:10 Chloride 106 mmol/L (98-107) 06/23/24 07:10 Carbon Dioxide 23 mmol/L (22-30) 06/23/24 07:10 Anion Gap 9 mmol/L 06/23/24 07:10 BUN <2 mg/dL (7-17) L 06/23/24 07:10 Creatinine 0.58 mg/dL (0.52-1.04) 06/23/24 07:10 Est GFR (CKD-EPI)AfAm >90 (>60 ml/min/1.73 sqM) 06/23/24 07:10 Est GFR (CKD-EPI)NonAf >90 (>60 ml/min/1.73 sqM) 06/23/24 07:10 Glucose 94 mg/dL (74-99) 06/23/24 07:10 Calcium 9.2 mg/dL (8.4-10.2) 06/23/24 07:10 06/23/24 10:57 IDENTIFYING DATA: This patient is a 29-year-old female, lives with grandfather, unemployed, however is seperated, no kids. HISTORY OF PRESENT ILLNESS: Patient was seen initially by automobile service writer for psychiatric consultation and as per consult note "The patient presented to the hospital initially on 06/20 for complaints of a bilateral lower extremity injury. The patient apparently was stating that she was walking quite a bit and injured herself. Patient was about to be discharged apparently however she started having dizziness vomiting and syncope. Patient had admitted to medical staff that she had overdosed on her medication including Lamictal the night prior. Patient's WBC count was elevated neutrophil count elevated. Benzodiazepines positive on urine drug screen. Salicylates and acetaminophen levels were negative. Patient was seen today by automobile service writer at the bedside, she was fairly sedated, when awoken she was mildly agitated, looking around the room, she only answered some questions, was fairly confused. She did admit to overdosing on her Lamictal the night before, when asked why she stated "suicide". She appeared to be fairly ill and began vomiting at the bedside. She was unable to answer any further questions. Patient was noticed to have several large scratches on her forearm." Patient was seen once again for follow-up on the medical floors by automobile service writer, she was awake, she denied it being a suicide attempt. She had very poor insight poor judgment requesting discharge. She was transferred to the mental health unit last night. Patient was agreeable to speak to automobile service writer today in the office. She continues to have very poor insight poor judgment focused on discharge. States that "I need to get a job and also go back to my grandfather". She continues to deny the overdose being a suicide attempt, states that she thought that she was supposed to take "100 tablets" of her Lamictal. She continues to be fairly argumentative, poor frustration tolerance. Minimizing her mood and anxiety at this time. Claims that she did not sleep well last night. At this time denies any suicidal homicidal ideations intent or plan. Denies any auditory or visual [place]. Denies any recreational drug use including no cigarettes. PAST PSYCHIATRIC HISTORY: Patient has a a history of bipolar disorder. Patient is apparently on Lamictal, Lexapro, Neurontin, Inderal, Strattera and BuSpar at home. Patient was apparently just admitted and discharged from [facility]. Claims that she is attempting to moved to [place] and be connected with outpatient in the area. Claims that she did have a suicide attempt previously by cutting her arms, states that she also attempted to ov erdose when she was a teenager. PAST MEDICAL HISTORY: Past Medical History: No Reported History History of Any Multi-Drug Resistant Organisms: None Reported Past Surgical History: No Surgical Hx Reported Past Psychological History: Anxiety, Bipolar, Depression Smoking Status: Never smoker Past Alcohol Use History: None Reported Past Drug Use History: None Reported ALLERGIES: as per EMR. CHEMICAL DEPENDENCY HISTORY: none FAMILY PSYCHIATRIC/SUBSTANCE USE HISTORY: mom has bipolar and father schizophrenia SOCIAL HISTORY: born in [place] and raised in [place], completed bachelors in arts, unemployed at this time. denies any legal history. Denies having any kids, claims that she is currently however . Lives with her grandfather in a house. MENTAL STATUS EXAM: General Appearance: Patient appears to be overweight, alert, superficially cooperative, demanding. Patient appears to have poor hygiene and grooming wearing hospital gown. Improving eye contact Behavior: Superficial, evasive and minimizing. Speech: Patient's speech is fluent, normal tone Mood/Affect: That her mood is "fine". Suicidality/Homicidality: currently denying any suicidal or homicidal thoughts. Perceptions: Denies Though content/process: Poverty of content, minimizing her suicide attempt, rationalizing, focused on discharge. Memory and concentration: AOX3, can spell "WORLD" backwards Judgment and insight: Poor/impulsive, improving mildly STRENGTHS/WEAKNESSES: strength is that patient is resilient. Weakness is that patient has poor judgment and is impulsive INTELLECT: Average IMPRESSIONS: Suicide attempt by overdose on psychiatric medication Bipolar disorder Likely cluster B personality disorder PLAN: -Patient is admitted under voluntary status to MHU for stabilization of psychiatric symptoms and safety. Patient has signed adult voluntary form and medication consent and is placed in patient's chart. -Medications : Increase Lexapro to 10 mg daily for mood/anxiety, discontinue Lamictal. Start Seroquel 50 mg nightly for mood stabilization/insomnia. -Zyprexa PRN for agitation/aggression -Patient was informed of the risks, benefits and side effects of the medication and patient verbally consented to taking the medications. Patient signed med consent form and was placed in chart. -Internal Medicine consult to perform medical evaluation and physical. -NRT -not needed as patient does not smoke -SW on board for discharge planning. Encourage patient to participate in groups to work on coping skills. 06/23/24 11:13
[2024-06-23] MEDS: IBUPROFEN 600 MG TAB PO PRN (17:01)
[2024-06-23] MEDS: sulfaSALAzine 500 MG TAB PO SCH (18:54)
[2024-06-23] MEDS: QUEtiapine 50 MG TAB PO SCH (21:26)
--- NOTE | 2024-06-24 03:53 | P.PN ---
Progress Note - Text Progress Note Date: 06/24/24 Attempted to see the patient in the MHU. Informed by the MHU RN that the patient is currently sedated and inappropriate for evaluation at this time. I will attempt to see the patient again tomorrow.
[2024-06-24] MEDS: ESCITALOPRAM 10 MG TAB PO SCH (09:42)
--- NOTE | 2024-06-24 15:46 | P.PN ---
Progress Note - Text Progress Note Date: 06/24/24 Interval history: Patient was seen wandering the hallways and was directable and agreeable to s peak with junior technical writer. She was seen socializing with others on the unit. She claims that her feet are still hurting from the long walk that she had before coming to the hospital. States that her mood and affect are improving, she was fairly superficial again with junior technical writer today. She was less focused on discharge. Claims that she was able to sleep fairly last night did not offer any problems with the medications. At this time patient denies any suicidal or homicidal ideations intent or plan. Denies any Auditory or visual hallucinations. Patient denies any side effects from the medications and has been compliant with meds. Mental status exam: General Appearance: Patient appears to be overweight, wearing hospital gown, stated age is alert, directable, and officially cooperative. Behavior: No agitated behavior. Patient is calm and directable, evasive at times Speech: Patient's speech is fluent and nonpressured. Mood/Affect: Mood is improving mildly, affect is congruent and constricted. Suicidality/Homicidality: Patient denies having any suicidal or homicidal ideation intent or plan. Perceptions: Patient denies any auditory or visual hallucinations. Though content/process: There is no evidence of any delusional thought content and thought process is linear and goal-directed. Continues to minimize her need for treatment Memory and concentration: AOX3, grossly intact for the purposes of this session Judgment and insight: improving mildly Assessment/Plan: Continue with current diagnosis. Patient continues to meet criteria for inpatient psychiatric admission for symptom stabilization and safety. Patient will be maintained on current psychotropic medication regimen. Monitor for medication compliance and for any psychotropic medication side effects. Will continue to monitor ongoing response to treatment. Encouraged participation in milieu.
--- NOTE | 2024-06-25 04:53 | P.CONS ---
History of Present Illness - Reason for Consult Consult date: 06/24/24 - History of Present Illness The patient is a 29-year-old female with a PMH of Vicente-Danlos syndrome, hypothyroidism, hypertension who had presented to the emergency room with complaints of depression and suicidal ideation. The patient had attempted to overdose on Lamictal on 06/19 by taking several tablets. She reports feeling well at the time of interview. Denied any active complaints. Denied experiencing chest discomfort, shortness of breath, fever, chills, cough, nausea, vomiting, abdominal pain, diarrhea. Review of systems: Pertinent positives and negatives as discussed in HPI, a complete review of systems was performed and all other systems are negative. Physical examination: General: non toxic, no distress, appears at stated age, obese Derm: no unusual rashes/lesions, no unusual ecchymoses, warm, dry Head: atraumatic, normocephalic, symmetric Eyes: EOMI, no lid lag, anicteric sclera ENT: Nose and ears atraumatic, no thrush, no pharyngeal erythema Neck: trachea midline, supple Mouth: no lip lesion, mucus membranes moist Cardiovascular: S1S2 reg, no murmur, no edema Lungs: CTA bilateral, no rhonchi, no rales , no accessory muscle use Abdominal: soft, nontender to palpation, no guarding Ext: no gross muscle atrophy, no contractures, Neuro: No gross focal neuro deficits noted Psych: Alert, oriented, appropriate affect Assessment: Chronic conditions: Vicente-Danlos syndrome, hypertension, hypothyroidism Depression and suicidal ideation Plan: Resume home medications Defer management of depression and suicidal ideation to the primary psychiatry service Thank you for allowing us to participate in the care of this patient. We will follow peripherally. Do not hesitate to contact us with questions. Someone can be reached from the [facility] hospitalist group at all hours of the day at [phone]. Past Medical History Past Medical History: No Reported History History of Any Multi-Drug Resistant Organisms: None Reported Past Surgical History: No Surgical Hx Reported Additional Past Surgical History / Comment(s): wisdom teeth removed Smoking Status: Never smoker - Past Family History Father History Unknown: Yes Family Medical History: Hyperlipidemia Medications and Allergies Home Medications Medication Instructions Recorded Confirmed Type Atomoxetine HCl [Strattera] 18 mg PO DAILY 06/20/24 06/22/24 History Escitalopram [Lexapro] 5 mg PO DAILY 06/20/24 06/22/24 History Etanercept [Enbrel Sureclick] 50 mg SQ Q7D 06/20/24 06/22/24 History Gabapentin [Neurontin] 200 mg PO BID 06/20/24 06/22/24 History Ibuprofen [Motrin] 600 mg PO Q8HR PRN #20 tab 06/20/24 06/22/24 Rx Levothyroxine Sodium [Synthroid] 25 mcg PO DAILY 06/20/24 06/22/24 History Propranolol [Inderal] 20 mg PO BID 06/20/24 06/22/24 History Spironolactone [Aldactone] 100 mg PO DAILY 06/20/24 06/22/24 History sulfaSALAzine [sulfaSALAzine Dr] 1,000 mg PO BID 06/23/24 06/23/24 History Allergies Allergy/AdvReac Type Severity Reaction Status Date / Time caffeine Allergy Anaphylaxis Verified 06/20/24 11:02 Physical Exam Vitals: Vital Signs Temp Pulse Resp BP Pulse Ox 06/24/24 16:02 94 106/75 06/24/24 09:47 114 H 91/66 06/24/24 06:51 98.2 F 76 16 109/74 97 Intake and Output 06/24/24 06/24/24 06/24/24 06:59 14:59 22:59 Other: Weight 94.8 kg Results CBC & Chem 7: 06/23/24 07:10
--- NOTE | 2024-06-25 11:11 | P.PN ---
Progress Note - Text Progress Note Date: 06/25/24 Interval History: Patient was seen [wandering the hallways] and was directable and agreeable to speak with ghost writer in the office. She states she is fine today, however, she feels a little hopeless today. She is fairly evasive. She states that she has been writing poetry. She states she does not want to be in here. She complains of nausea. Safety Person offered zofran, patient agreeable. Patient offered no other complaints. She claims she slept well. At this time patient denies any suicidal or homicidal ideations, intent or plan. Patient denies any auditory, visual hallucinations and denies any paranoia or delusions. Patient denies any side effects from the medications and has been compliant with meds. Mental Status Exam: General Appearance: Patient appears to be overweight, wearing hospital gown, stated age is alert, directable, and attempted to cooperative. Behavior: No agitated behavior. Patient is calm and directable, evasive at times Speech: Patient's speech is fluent and nonpressured. Mood/Affect: Mood is "fine", affect is congruent and constricted. Suicidality/Homicidality: Patient denies having any suicidal or homicidal ideation intent or plan. Perceptions: Patient denies any auditory or visual hallucinations. Though content/process: There is no evidence of any delusional thought content and thought process is linear and goal-directed. Continues to minimize her need for treatment Memory and concentration: AOX3, grossly intact for the purposes of this session Judgment and insight: improving mildly Assessment Suicide attempt by overdose on psychiatric medication Bipolar disorder Likely cluster B personality disorder Plan: -Patient is admitted under voluntary status to MHU for stabilization of psychiatric symptoms and safety. Patient has signed adult voluntary form and medication consent and is placed in patient's chart. -Medications : Lexapro to 10 mg daily for mood/anxiety, increase Seroquel 100 mg nightly for mood stabilization/insomnia. Add zofran prn for nausea -Zyprexa PRN for agitation/aggressionl. -NRT -not needed as patient does not smoke -SW on board for discharge planning. Encourage patient to participate in groups to work on coping skills. liekly discharge tuesday - if patient is improving
[2024-06-25] MEDS: QUEtiapine 100 MG TAB PO SCH (20:39)
[2024-06-26] MEDS: ACETAMINOPHEN TAB 325 MG TAB PO PRN (08:46)
[2024-06-26] MEDS: ONDANSETRON 4 MG TAB PO PRN (08:49)
[2024-06-26 08:51] VITALS: RESP 18
--- NOTE | 2024-06-26 12:18 | P.PN ---
Progress Note - Text Progress Note Date: 06/26/24 Interval History: Patient was seen [wandering the hallways] and was directable and agreeable to speak with publicity writer in the office. She states she is feeling alot better today. She states that she had just been sad for so long, and now she is ready to move on with her life. She is going to groups, and states that they are helping her. She endorses good sleep and a good appetite. She states that her nausea is subsiding. She states that she is weird about people pouring water for her, and she likes to get her own water because it is related to trauma from her childhood. She also talks of having to get her possessions from her ex's home because they are going through a divorce. Patient offered no other complaints. She claims she slept well, and her appetite is normal. At this time patient denies any suicidal or homicidal ideations, intent or plan. Patient denies any auditory, visual hallucinations and denies any paranoia or delusions. Patient denies any side effects from the medications and has been compliant with meds. Mental Status Exam: General Appearance: Patient appears to be overweight, wearing hospital gown, stated age is alert, directable, and attempted to cooperative. long scratches down bilateral arms Behavior: No agitated behavior. Patient is calm and directable Speech: Patient's speech is fluent and nonpressured. Mood/Affect: Mood is "better", affect is congruent and constricted. Suicidality/Homicidality: Patient denies having any suicidal or homicidal ideation intent or plan. Perceptions: Patient denies any auditory or visual hallucinations. Though content/process: There is no evidence of any delusional thought content and thought process is linear and goal-directed. Continues to minimize her need for treatment Memory and concentration: AOX3, grossly intact for the purposes of this session Judgment and insight: improving mildly Assessment Suicide attempt by overdose on psychiatric medication Bipolar disorder Likely cluster B personality disorder Plan: -Patient is admitted under voluntary status to MHU for stabilization of psychiatric symptoms and safety. Patient has signed adult voluntary form and medication consent and is placed in patient's chart. -Medications : Lexapro to 10 mg daily for mood/anxiety, Seroquel 100 mg nightly for mood stabilization/insomnia. zofran prn for nausea -Zyprexa PRN for agitation/aggressionl. -NRT -not needed as patient does not smoke -SW on board for discharge planning. Encourage patient to participate in groups to work on coping skills. likely discharge vs tuesday if patient is improving
[2024-06-26] MEDS: LORazepam 1 MG TAB PO PRN (15:38)
[2024-06-26] MEDS: lamoTRIgine 25 MG TAB PO SCH (15:38)
[2024-06-26] MEDS: PROPRANOLOL 10 MG TAB PO SCH (21:06)
[2024-06-27] MEDS ORDERED: PROPRANOLOL 10 MG TAB PO PRN (10:24)
--- NOTE | 2024-06-27 10:28 | P.PN ---
Progress Note - Text Progress Note Date: 06/27/24 Interval History: Patient was seen wandering the hallways and was directable and agreeable to sp jacqueline with chart writer in the office. She states she is feeling quite a bit better. Patient states that she was having an aura yesterday, like the aura that she gets prior to having a seizure. Patient was given lamictal, which she claims her neurologist has prescribed her for this. She states she has been writing poetry while on the unit. Patient offered no other complaints. She claims she slept well, and her appetite is normal. At this time patient denies any suicidal or homicidal ideations, intent or plan. Patient denies any auditory, visual hallucinations and denies any paranoia or delusions. Patient denies any side effects from the medications and has been compliant with meds. Mental Status Exam: General Appearance: Patient appears to be overweight, wearing hospital gown, stated age is alert, directable, and attempted to cooperative. long scratches down bilateral arms Behavior: No agitated behavior. Patient is calm and directable Speech: Patient's speech is fluent and nonpressured. Mood/Affect: Mood is "better", affect is congruent and constricted. mildly improving Suicidality/Homicidality: Patient denies having any suicidal or homicidal ideation intent or plan. Perceptions: Patient denies any auditory or visual hallucinations. Though content/process: There is no evidence of any delusional thought content and thought process is linear and goal-directed. Memory and concentration: AOX3, grossly intact for the purposes of this session Judgment and insight: improving mildly Assessment Suicide attempt by overdose on psychiatric medication Bipolar disorder Likely cluster B personality disorder Plan: -Patient is admitted under voluntary status to MHU for stabilization of psychiatric symptoms and safety. Patient has signed adult voluntary form and medication consent and is placed in patient's chart. -Medications : Lexapro 10 mg daily for mood/anxiety, Seroquel 100 mg nightly for mood stabilization/insomnia. zofran prn for nausea, add lamictal 25mg bid for mood stabilization/AED. -Zyprexa and ativan PRN for agitation/aggression and anxiety. -NRT -not needed as patient does not smoke -SW on board for discharge planning. Encourage patient to participate in groups to work on coping skills. likely discharge tomorrow to her grandfathers home if patient is improving
[2024-06-27 21:03] VITALS: TEMP 98
[2024-06-28 06:55] VITALS: BP 107/69; PULSE 69
--- NOTE | 2024-06-28 09:45 | P.DS ---
Providers Date of admission: 06/22/24 19:37 Expected date of discharge: 06/28/24 Attending physician: Vinicius Orona MD Consults: 06/22/24 20:28 Consult Physician Routine Consulting Provider: Anil Pastrana Consult Reason/Comments: Medical managment Do you want consulting provider notified?: Yes Primary care physician: Stated None - Discharge Diagnosis(es) (1) Suicide attempt by other psychotropic drug overdose Current Visit: Yes Status: Acute Priority: High (2) Bipolar disorder Current Visit: Yes Status: Acute Priority: High (3) Cluster B personality disorder Current Visit: Yes Status: Acute Priority: Medium Hospital Course: Admission HPI: Admission note was completed by promotion writer "Patient was seen initially by promotion writer for psychiatric consultation and as per consult note "The patient presented to the hospital initially on 06/20 for complaints of a bilateral lower extremity injury. The patient apparently was stating that she was walking quite a bit and injured herself. Patient was about to be discharged apparently however she started having dizziness vomiting and syncope. Patient had admitted to medical staff that she had overdosed on her medication including Lamictal the night prior. Patient's WBC count was elevated neutrophil count elevated. Benzodiazepines p ositive on urine drug screen. Salicylates and acetaminophen levels were negative. Patient was seen today by promotion writer at the bedside, she was fairly sedated, when awoken she was mildly agitated, looking around the room, she only answered some questions, was fairly confused. She did admit to overdosing on her Lamictal the night before, when asked why she stated "suicide". She appeared to be fairly ill and began vomiting at the bedside. She was unable to answer any further questions. Patient was noticed to have several large scratches on her forearm." Patient was seen once again for follow-up on the medical floors by promotion writer, she was awake, she denied it being a suicide attempt. She had very poor insight poor judgment requesting discharge. She was transferred to the mental health unit last night. Patient was agreeable to speak to promotion writer today in the office. She continues to have very poor insight poor judgment focused on discharge. States that "I need to get a job and also go back to my grandfather". She continues to deny the overdose being a suicide attempt, states that she thought that she was supposed to take "100 tablets" of her Lamictal. She continues to be fairly argumentative, poor frustration tolerance. Minimizing her mood and anxiety at this time. Claims that she did not sleep well last night. At this time denies any suicidal homicidal ideations intent or plan. Denies any auditory or visual loose [place]. Denies any recreational drug use including no cigarettes." Hospital course: Upon admission to the unit patient was directable and agreeable to commence treatment and signed adult voluntary form. Patient got along well with other patients on the unit and followed unit protocol. Patient was compliant with the medications and denied any side effects throughout hospital course. Patient was started on Lexapro 10 mg daily for mood/anxiety, Seroquel 100 mg nightly for mood stabilization/insomnia, Zofran as needed for nausea, Lamictal was restarted at a lower dose 25 mg twice daily for mood stabilization/AED. Patient spoke of her stressors and engaged in therapy both group and individual. Patient was also seen by medical team for history and physical exam. Throughout the course of the hospitalization patient gradually improved with regards to mood, anxiety, suicidal thoughts, sleep and returned back to their baseline level of functioning. On the day of discharge patient denied any suicidal or homicidal ideations intent or plan denied any auditory or visual hallucinations. Patient endorsed wanting to live for her family and her future. The patient denied any access to guns or weapons. Patient denied any paranoia and did not endorse any delusions. Patient does not have a significant history of substance abuse and was counseled on abstaining from all substances including alcohol and marijuana. Patient was also counseled on the medications and need for regular compliance and was encouraged to follow-up with their outpatient appointment for mental health and also for primary care. domestic laundry worker and patient attempted several times to contact patient's grandfather, patient insists that she can return there, he lives locally alone, she requested a taxi ride to her grandfather's house today on discharge, she will also meet with [facility] for intake and for mental health follow-up. Mental status exam: General Appearance: Patient appears to be overweight, stated age is alert, pleasant, and cooperative. Patient is in no acute distress and has improved hygiene and grooming Behavior: Patient is calmly seated without any agitated behavior. Speech: Patient's speech is fluent and nonpressured. Mood/Affect: Patient reports their mood is "better", affect is congruent and euthymic. Suicidality/Homicidality: Patient denies having any suicidal or homicidal ideation intent or plan. Perceptions: Patient denies any auditory or visual hallucinations. Though content/process: There is no evidence of any delusional thought content and thought process is linear and goal-directed. More future oriented Memory and concentration: AOX3, grossly intact for the purposes of this session. Can spell "WORLD" backwards correctly. Judgment and insight: Chronically poor, however has improved with guarded prognosis Impression: Suicide attempt by overdose on psychiatric medication Bipolar disorder cluster B personality disorder Plan: -Continue with discharge today as patient has improved and stabilized psychiatrically and is not currently an imminent threat to herself and/or others. Patient will remain at chronically elevated risk for harm to self and/or others due to her impulsivity. -Continue medications: Lexapro 10 mg daily for mood/anxiety, Seroquel 100 mg nightly for mood stabilization/insomnia, Lamictal 25 mg twice daily for mood stabilization/AED -Patient was counseled on the need for medication compliance and appropriate follow-up at mental health and also primary care for medical issues. Patient verbalized understanding and agreed. -Social work to attempted to contact patient's grandfather, he was not able to answer the phone however patient claims that she wants to be discharged to his house and will need a taxi ride over there today. Social work also to arrange for patients follow up appointments with [facility] for psychiatric care along with follow up with primary care provider. -Patient counseled on abstaining from recreational drugs and marijuana and alcohol. Was informed/educated on the adverse effects on their physical and mental health. Patient verbally agreed and understood. -Patient was instructed to return to the hospital or seek immediate medical care if their psychiatric or medical symptoms do worsen or reoccur. Allergies Allergy/AdvReac Type Severity Reaction Status Date / Time caffeine Allergy Anaphylaxis Verified 06/20/24 11:02 Laboratory Results Sodium 138 mmol/L (137-145) 06/23/24 07:10 Potassium 3.8 mmol/L (3.5-5.1) 06/23/24 07:10 Chloride 106 mmol/L (98-107) 06/23/24 07:10 Carbon Dioxide 23 mmol/L (22-30) 06/23/24 07:10 Anion Gap 9 mmol/L 06/23/24 07:10 BUN <2 mg/dL (7-17) L 06/23/24 07:10 Creatinine 0.58 mg/dL (0.52-1.04) 06/23/24 07:10 Est GFR (CKD-EPI)AfAm >90 (>60 ml/min/1.73 sqM) 06/23/24 07:10 Est GFR (CKD-EPI)NonAf >90 (>60 ml/min/1.73 sqM) 06/23/24 07:10 Glucose 94 mg/dL (74-99) 06/23/24 07:10 Calcium 9.2 mg/dL (8.4-10.2) 06/23/24 07:10 Vital Signs Temp 98.0 F 06/27/24 21:02 Pulse 69 06/28/24 06:53 Resp 18 06/27/24 21:02 BP 107/69 06/28/24 06:53 Pulse Ox 98 06/27/24 21:02 FiO2 Patient Condition at Discharge: Stable Plan - Discharge Summary New Discharge Prescriptions: New lamoTRIgine [LaMICtal] 25 mg PO BID 30 Days #60 tab Escitalopram [Lexapro] 10 mg PO DAILY 30 Days #30 tab Propranolol [Inderal] 10 mg PO BID PRN 30 Days #60 tab PRN Reason: anxiety QUEtiapine [SEROquel] 100 mg PO HS 30 Days #30 tab Continue Etanercept [Enbrel Sureclick] 50 mg SQ Q7D Gabapentin [Neurontin] 200 mg PO BID 30 Days #120 cap sulfaSALAzine [sulfaSALAzine Dr] 1,000 mg PO BID 30 Days #120 tab Ibuprofen [Motrin] 600 mg PO Q8HR PRN #20 tab PRN Reason: Pain Spironolactone [Aldactone] 100 mg PO DAILY 30 Days #30 tab Levothyroxine Sodium [Synthroid] 25 mcg PO DAILY 30 Days #30 tab Discontinued Atomoxetine HCl [Strattera] 18 mg PO DAILY Propranolol [Inderal] 20 mg PO BID Escitalopram [Lexapro] 5 mg PO DAILY Discharge Medication List Etanercept [Enbrel Sureclick] 50 mg SQ Q7D 06/20/24 [History] Ibuprofen [Motrin] 600 mg PO Q8HR PRN #20 tab 06/20/24 [Rx] Escitalopram [Lexapro] 10 mg PO DAILY 30 Days #30 tab 06/28/24 [Rx] Gabapentin [Neurontin] 200 mg PO BID 30 Days #120 cap 06/28/24 [Rx] Levothyroxine Sodium [Synthroid] 25 mcg PO DAILY 30 Days #30 tab 06/28/24 [Rx] Propranolol [Inderal] 10 mg PO BID PRN 30 Days #60 tab 06/28/24 [Rx] QUEtiapine [SEROquel] 100 mg PO HS 30 Days #30 tab 06/28/24 [Rx] Spironolactone [Aldactone] 100 mg PO DAILY 30 Days #30 tab 06/28/24 [Rx] lamoTRIgine [LaMICtal] 25 mg PO BID 30 Days #60 tab 06/28/24 [Rx] sulfaSALAzine [sulfaSALAzine Dr] 1,000 mg PO BID 30 Days #120 tab 06/28/24 [Rx] Activity/Diet/Wound Care/Special Instructions: Avoid the use of street drugs and alcohol. Take all medications as prescribed. When you are in need of refills on your medications, please contact your medical provider and/or outpatient psychiatrist/provider to have this done. Please go to your scheduled outpatient appointment for aftercare treatment. If symptoms return or become worse, call the crisis line at and/or go to the nearest emergency room for evaluation. National Suicide Hotline 786 Discharge Disposition: HOME SELF-CARE
[2024-06-29] MEDS ORDERED: Etanercept [Enbrel Sureclick] 50 MG/ML Pen.Injctr SQ SCH (09:00)
== END 2024-06-28 12:40 | disposition home or self-care (01) | DRG 817 ==
LOC: 3MHU 19:37
PROVIDERS: ADMIT Psychiatry & Neurology Psychiatry; ATTEND Psychiatry & Neurology Psychiatry
DX: T50.902A Poisoning by unspecified drugs, medicaments and biological substances, intentional self-harm, initial encounter (principal); E03.9 Hypothyroidism, unspecified; F31.9 Bipolar disorder, unspecified; F41.9 Anxiety disorder, unspecified; F60.89 Other specific personality disorders; G47.00 Insomnia, unspecified; I10 Essential (primary) hypertension; Q79.60 Ehlers-Danlos syndrome, unspecified; Z63.5 Disruption of family by separation and divorce; Z79.890 Hormone replacement therapy; Z79.899 Other long term (current) drug therapy; Z81.8 Family history of other mental and behavioral disorders
CPT/HCPCS: 80048

== ENCOUNTER → 2024-12-05 | Outpatient (CLI) | payer OTHER ==
--- NOTE | 2024-12-05 18:29 | CA ---
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 18 - 58 / 22 - 52 cm??? LA Volume Index 18.9 cm???/m??? 16 - 28 cm???/m??? DOPPLER MV Area PHT 3.1 cm??? Mitral E Point Velocity 62.5 cm/s Mitral A Point Velocity 56.1 cm/s Mitral E to A Ratio 1.1 MV Deceleration Time 244.2 ms TR Peak Velocity 149.4 cm/s TR Peak Gradient 8.9 mmHg FINDINGS Left Ventricle Left ventricular ejection fraction is estimated at 55-60 %. Normal left ventricular systolic function with no obvious regional wall motion abnormalities. Left ventricular wall thickness normal. Right Ventricle Normal right ventricular size and function. Right ventricular systolic pressure within normal limits. Right Atrium Normal right atrial size. Lipomatous hypertrophy of the interatrial septum Left Atrium Normal left atrial size. Mitral Valve Structurally normal mitral valve. No mitral stenosis. No mitral regurgitation. Aortic Valve Trileaflet aortic valve. No aortic valve stenosis or regurgitation. Tricuspid Valve Structurally normal tricuspid valve. No tricuspid stenosis. Trace tricuspid regurgitation. Pulmonic Valve Structurally normal pulmonic valve. No pulmonic stenosis. No pulmonic regurgitation. Pericardium No pericardial effusion. Aorta Normal size aortic root and proximal ascending aorta. CONCLUSIONS 1. Normal left ventricular size and systolic function 2. Trace tricuspid regurgitation Previewed by: Dr. Dav Henry MD (Electronically Signed) Final Date: 05 December 2024 18:28
== END | disposition home or self-care (01) ==
LOC: RADECHMAIN 14:30
PROVIDERS: ATTEND Family Medicine
DX: Q23.8 Other congenital malformations of aortic and mitral valves (principal)
CPT/HCPCS: 93306